=== PATIENT | male | born 1970 | race American Indian/Alaskan Native ===

== ENCOUNTER 2016-11-10 21:49 | Emergency (ER) | payer SELFPAY ==
[2016-11-10] MEDS ORDERED: ZOFRAN IV ONE (22:54)
[2016-11-10] MEDS ORDERED: NACL 0.9% 1000 ML 1,000 ML IV ONE (22:55)
--- NOTE | 2016-11-10 23:09 | Emergency Department Report ---
ED N/V/D HPI - General Chief complaint: Nausea/Vomiting/Diarrhea Stated complaint: N/V Time Seen by Provider: 11/10/16 22:12 Source: patient, EMS Mode of arrival: Stretcher Limitations: No Limitations - History of Present Illness Initial comments: 45-year-old male with a past medical history of COPD and hypertension presents to the hospital complains of nausea, vomiting, and generalized malaise. Symptoms started today. He has had 4-5 episodes of vomiting. Denies melena, hematochezia, hematemesis, fever, recent travel, sick contacts, or pain. Patient complains of chills and sweats without documented fever. PMD: [place] - Related Data Previous Rx's Medication Instructions Recorded Last Taken Type Ondansetron [Zofran Odt] 4 mg PO Q8HR PRN #20 tab.rapdis 11/11/16 Unknown Rx Allergies Allergy/AdvReac Type Severity Reaction Status Date / Time No Known Allergies Allergy Unverified 11/10/16 22:14 ED Review of Systems ROS: Stated complaint: N/V Other details as noted in HPI Comment: All other systems reviewed and negative Other: Constitutional: No fevers chills Eyes: No eye pain visual changes ENT: No ear pain or throat pain Neck: Denies pain Respiratory: Denies cough wheezing shortness of breath Cardiovascular: Denies chest pain, palpitations, syncope GI: as per hpi : Denies dysuria Musculoskeletal: Denies back pain Skin: Denies rash, lesions, erythema Neurologic: Denies headache, numbness, weakness Psychiatric: Denies suicidal ideation, hallucinations ED Past Medical Hx - Past Medical History Hx Hypertension: Yes Hx COPD: Yes - Surgical History Past Surgical History?: No - Social History Smoking Status: Former Smoker Substance Use Type: None - Medications Home Medications: Home Medications Medication Instructions Recorded Confirmed Last Taken Type Ondansetron [Zofran Odt] 4 mg PO Q8HR PRN #20 tab.rapdis 11/11/16 Unknown Rx ED Physical Exam - General Limitations: No Limitations - Other Other exam information: General: No limitations, patient is alert in no acute distress Head exam: Atraumatic Eyes exam: Normal appearance ENT: Moist mucous membrane, normal oropharynx Neck exam: Normal inspection, full range of motion Respiratory exam: Clear to auscultation bilateral, no wheezes, rales, crackles Cardiovascular: Normal rate and rhythm, normal heart sounds Abdomen: Soft, nondistended, and nontender, with normal bowel sounds, no rebound, or guarding Extremity: Full range of motion normal inspection no deformity Back: Normal Inspection, full range of motion, no tenderness Neurologic: Alert, oriented x3, cranial nerves intact, no motor or sensory deficit Psychiatric: normal affect, normal mood Skin: Warm, dry, intact ED Course Vital Signs 11/10/16 11/10/16 11/10/16 22:07 22:10 22:11 Temperature 97.3 F L Pulse Rate 79 70 76 Respiratory 12 11 L 20 Rate Blood Pressure 124/69 124/69 124/69 O2 Sat by Pulse 98 99 99 Oximetry 11/10/16 11/10/16 11/10/16 22:20 22:30 22:40 Temperature Pulse Rate 63 67 64 Respiratory 14 22 24 Rate Blood Pressure 108/56 108/56 104/58 O2 Sat by Pulse 97 95 93 Oximetry 11/10/16 11/10/16 11/10/16 22:50 23:00 23:11 Temperature Pulse Rate 79 64 65 Respiratory 13 9 L 23 Rate Blood Pressure 96/62 96/62 O2 Sat by Pulse 97 93 93 Oximetry 11/10/16 11/10/16 11/10/16 23:21 23:30 23:41 Temperature Pulse Rate 67 65 68 Respiratory 14 20 19 Rate Blood Pressure 99/63 99/56 99/56 O2 Sat by Pulse 95 92 90 Oximetry 11/10/16 11/11/16 11/11/16 23:51 00:01 00:11 Temperature Pulse Rate 71 70 76 Respiratory 19 13 8 L Rate Blood Pressure 105/59 107/70 107/70 O2 Sat by Pulse 91 95 Oximetry 11/11/16 00:17 Temperature Pulse Rate Respiratory 16 Rate Blood Pressure O2 Sat by Pulse 99 Oximetry - Reevaluation(s) Reevaluation #1: 11/10/16 23:15 Normal saline and Zofran ordered. - Consultations Consultation #1: 11/11/16 00:[address] Mcdowell assistant store manager operations. Kidney failure likely chronic given normal BUN, normal CK, and normal bicarbonate. Outpatient nephrology follow-up recommended ED Medical Decision Making - Lab Data Result diagrams: 11/10/16 23:05 11/10/16 23:05 Lab Results 11/10/16 11/10/16 11/10/16 Range/Units 23:05 23:05 23:05 WBC 11.4 H (4.5-11.0) K/mm3 RBC 5.56 H (3.65-5.03) M/mm3 Hgb 16.0 H (11.8-15.2) gm/dl Hct 46.6 H (35.5-45.6) % MCV 84 (84-94) fl MCH 29 (28-32) pg MCHC 34 (32-34) % RDW 14.6 (13.2-15.2) % Plt Count 131 L (140-440) K/mm3 Lymph % (Auto) 6.1 L (13.4-35.0) % [place] % (Auto) 6.3 (0.0-7.3) % Eos % (Auto) 0.5 (0.0-4.3) % Baso % (Auto) 0.5 (0.0-1.8) % Lymph # 0.7 L (1.2-5.4) K/mm3 [place] # 0.7 (0.0-0.8) K/mm3 Eos # 0.1 (0.0-0.4) K/mm3 Baso # 0.1 (0.0-0.1) K/mm3 Seg Neutrophils % 86.6 H (40.0-70.0) % Seg Neutrophils # 9.9 H (1.8-7.7) K/mm3 Sodium 136 L (137-145) mmol/L Potassium 3.9 (3.6-5.0) mmol/L Chloride 97.3 L (98-107) mmol/L Carbon Dioxide 25 (22-30) mmol/L Anion Gap 18 mmol/L BUN 19 (9-20) mg/dL Creatinine 2.3 H (0.8-1.5) mg/dL Estimated GFR 38 ml/min BUN/Creatinine Ratio 8.26 % Glucose 129 H (75-100) mg/dL Calcium 8.8 (8.4-10.2) mg/dL Total Bilirubin 1.1 (0.1-1.2) mg/dL Direct Bilirubin 0.3 H (0-0.2) mg/dL Indirect Bilirubin 0.8 mg/dL AST 15 (5-40) units/L ALT 10 (7-56) units/L Alkaline Phosphatase 56 (35-129) units/L Total Creatine Kinase 153 (55-170) units/L CK-MB (CK-2) 2.5 (0.0-4.0) ng/mL CK-MB (CK-2) Rel Index 1.6 (0-4) Troponin T 0.019 (0.00-0.029) ng/mL Total Protein 7.6 (6.3-8.2) g/dL Albumin 4.0 (3.9-5) g/dL Albumin/Globulin Ratio 1.1 % Lipase 59 (13-60) units/L influenza neg - EKG Data -: EKG Interpreted by Me ([id number], [id number]) - EKG Data When compared to previous EKG there are: previous EKG unavailable - Medical Decision Making Pain improved with ED treatment and can tolerate by mouth. No further vomiting. Will be discharged home. - Differential Diagnosis gastritis, influenza, viral syndrome, pancreatitis, hepatitis Critical Care Time: No Critical care attestation.: If time is entered above; I have spent that time in minutes in the direct care of this critically ill patient, excluding procedure time. ED Disposition Clinical Impression: Vomiting, Renal insufficiency, Thrombocytopenia Disposition: DISCHARGED TO HOME OR SELFCARE Is pt being admited?: No Does the pt Need Aspirin: No Condition: Stable Instructions: Acute Nausea and Vomiting (ED), Impaired Kidney Function (ED) Additional Instructions: Take the medication as prescribed. Return if symptoms worsen. You kidney function is abnormal today. This is likely chronic based on her other lab findings. You have been provided a copy of your lab results to take your primary care doctor for further evaluation. I have also provided name of the assistant store manager operations/kidney specialist to follow-up with to continue to monitor and treat your abnormal kidney function. Prescriptions: Ondansetron [Zofran Odt] 4 mg PO Q8HR PRN #20 tab.rapdis PRN Reason: Nausea And Vomiting Referrals: PRIMARY CARE, [Primary Care Provider] - 3-5 Days RADHA BLAKE MD [Staff Physician] - 3-5 Days (Department Specialist (kidney specialist))
[2016-11-10 23:17] LABS: Basophils % (Auto) 0.5 % (0.0-1.8); Eosinophils % (Auto) 0.5 % (0.0-4.3); Hematocrit 46.6 % (35.5-45.6); Mean Corpuscular HGB Conc 34 % (32-34); Mean Corpuscular Hemoglobin 29 pg (28-32); Mean Corpuscular Volume 84 fl (84-94); Platelet Count 131 K/mm3 (140-440); Red Blood Count 5.56 M/mm3 (3.65-5.03); Red Cell Distribution Width 14.6 % (13.2-15.2); White Blood Count 11.4 K/mm3 (4.5-11.0)
[2016-11-10 23:42] LABS: BUN/Creatinine Ratio 8.26; Calcium 8.8 mg/dL (8.4-10.2); Chloride 97.3 mmol/L (98-107); Potassium 3.9 mmol/L (3.6-5.0)
[2016-11-10 23:43] LABS: Creatine Kinase MB 2.5 ng/mL (0.0-4.0)
[2016-11-10 23:45] LABS: Albumin/Globulin Ratio 1.1 %; Bilirubin,Direct 0.3 mg/dL (0-0.2); Bilirubin,Indirect 0.8 mg/dL; Bilirubin,Total 1.1 mg/dL (0.1-1.2); Total Protein 7.6 g/dL (6.3-8.2)
[2016-11-11 00:16] VITALS: BP 107/70
[2016-11-11 02:02] LABS: Bilirubin,Urine NEG (Negative)
[2016-11-11 02:03] LABS: Bacteria,Urine 1+ /HPF (Negative); Blood,Urine NEG (Negative); Ketones,Urine NEG (Negative); Leukocyte Esterase,Urine NEG (Negative); Mucus,Urine FEW /HPF; Nitrite,Urine NEG (Negative); Sperm,Urine FEW /HPF (NP); Urobilinogen,Urine < 2.0 mg/dL (<2.0)
[2016-11-11 02:05] LABS: Protein,Urine >500 mg/dL (Negative)
== END 2016-11-11 02:16 | disposition home or self-care (01) ==
LOC: ED 21:49
DX: N28.9 Disorder of kidney and ureter, unspecified (principal); D69.6 Thrombocytopenia, unspecified; R11.2 Nausea with vomiting, unspecified; I10 Essential (primary) hypertension; J44.9 Chronic obstructive pulmonary disease, unspecified; Z87.891 Personal history of nicotine dependence
CPT/HCPCS: 36415; 80048; 80074; 81001; 82550; 82553; 83690; 84484; 85025; 87400; 93005; 93010; 96361; 96374; 99284; J2405; J7030